=== PATIENT | male | born 1965 | race Hispanic/Latino ===

== ENCOUNTER 2022-10-09 04:45 | Observation (INO) | payer SELFPAY ==
[~2022-10-09] VITALS: Ht 182.9 cm; Wt 147.4 kg
[~2022-10-09 04:45] MED LIST: DOXYCYCLINE HY100 M2 IV; ULTRAM50 MG PO
[2022-10-09 05:20] LABS: BASOPHILS # (AUTO) 0.1 (0.0-0.1); BASOPHILS % 0.7 % (0.0-1.0); EOSINOPHILS # (AUTO) 0.4 (0.0-0.4); EOSINOPHILS % 5.9 % (0.0-6.0); HEMATOCRIT 42.4 % (38.2-49.6); HEMOGLOBIN 13.9 g/dL (14.0-18.0); LYMPHOCYTES # (AUTO) 1.3 (1.0-3.2); LYMPHOCYTES % 17.5 % (18.0-39.1); MEAN CORPUSCULAR HEMOGLOBIN 27.1 pg (28-32); MEAN CORPUSCULAR HGB CONC 32.8 g/dL (31-35); MEAN CORPUSCULAR VOLUME 82.7 fL (81-99); MONOCYTES # (AUTO) 0.5 (0.2-0.8); MONOCYTES % 7.1 % (4.4-11.3); NEUTROPHILS % 68.5 % (38.7-80.0); PLATELET COUNT 205 x10e3/uL (140-360); RED BLOOD COUNT 5.13 x10e6/uL (4.3-5.7); RED CELL DISTRIBUTION WIDTH 13.4 % (11.7-14.4)
[2022-10-09 05:44] LABS: ALBUMIN 3.6 g/dL (3.5-5.0); ALBUMIN/GLOBULIN RATIO 1.2 (0.8-2.0); CALCIUM 8.7 mg/dL (8.4-10.2); CREATININE, SERUM 0.96 mg/dL (0.72-1.25)
[2022-10-09 05:51] LABS: CREATINE KINASE MB 1.5 ng/mL (0-5.0)
[2022-10-09 06:03] LABS: AMPHETAMINES SCREEN,URINE NEGATIVE (NEGATIVE); BENZODIAZEPINES SCREEN,URINE NEGATIVE (NEGATIVE); PHENCYCLIDINE SCREEN,URINE NEGATIVE (NEGATIVE)
[2022-10-09] MEDS ORDERED: MELOXICAM7.5 MG PO (07:12)
[2022-10-09] MEDS ORDERED: ASPIRIN81 MG PO (07:12)
[2022-10-09] MEDS ORDERED: ATORVASTATIN CA20 MG PO (07:12)
[2022-10-09] MEDS ORDERED: AMLODIPINE BESY10 MG PO (07:12)
[2022-10-09] MEDS ORDERED: LISINOPRIL-HCT1 EAC1 PO (07:12)
[2022-10-09] MEDS ORDERED: CILOSTAZOL100 MG PO (07:12)
[2022-10-09] MEDS ORDERED: NEURONTIN300 MG PO (07:12)
[2022-10-09] MEDS ORDERED: ASPIRIN 325 MG TAB PO ONE (07:15)
[2022-10-09] MEDS ORDERED: NITROGLYCERIN 2% OINT 1 GM PKT TOP ONE (07:15)
[2022-10-09] MEDS ORDERED: NITROGLYCERIN 0.4 MG SUBL SL PRN (08:45)
[2022-10-09] MEDS ORDERED: ASPIRIN 81 MG CHEW TAB PO ONE (08:45)
[2022-10-09] MEDS ORDERED: SODIUM CHLORIDE FLUSH 10 ML SYR INJ PRN (08:45)
[2022-10-09] MEDS: ASPIRIN 81 MG ENTERIC COATED PO SCH (09:00)
[2022-10-09] MEDS: LISINOPRIL 10 MG TAB PO SCH (10:51)
[2022-10-09] MEDS: AMLODIPINE BESYLATE 5 MG TAB PO SCH (10:51)
[2022-10-09] MEDS: NITROGLYCERIN 2% OINT 1 GM PKT TOP SCH ×2 (12:00→18:00)
[2022-10-09 12:40] VITALS: BP 145/85
[2022-10-09 14:30] VITALS: BP 145/85
[2022-10-09] MEDS ORDERED: BENZONATATE 100 MG CAP PO PRN (14:30)
[2022-10-09] MEDS ORDERED: MELATONIN 5 MG TABLET PO PRN (14:30)
[2022-10-09] MEDS ORDERED: ACETAMINOPHEN 325 MG TAB PO PRN (14:30)
[2022-10-09] MEDS ORDERED: LIDOCAINE 4% PATCH TP PRN (14:30)
[2022-10-09] MEDS ORDERED: SIMETHICONE 80 MG CHEW PO PRN (14:30)
[2022-10-09] MEDS ORDERED: HYDRALAZINE HCL 20 MG/ML VIAL IV PRN (14:30)
[2022-10-09] MEDS ORDERED: POTASSIUM CHLORIDE 20 MEQ TAB CR PO PRN (14:30)
[2022-10-09] MEDS ORDERED: DIPHENHYDRAMINE HCL 25 MG CAP PO PRN (14:30)
[2022-10-09] MEDS ORDERED: ONDANSETRON HCL INJ 2MG/ML 2ML 2 MG/ML VIAL IV PRN (14:30)
[2022-10-09] MEDS ORDERED: DOCUSATE SODIUM 100 MG CAP PO PRN (14:30)
[2022-10-09] MEDS ORDERED: ALBUTEROL/IPRATROPIUM 3 ML NEB NEB PRN (14:30)
[2022-10-09] MEDS ORDERED: DEXTROSE 50% SYRINGE 50 ML IV PRN (14:30)
[2022-10-09] MEDS: LORATADINE 10 MG TAB PO SCH (15:24)
[2022-10-09] MEDS ORDERED: IOPAMIDOL 370 MG/ML 100 ML INFUS..BTL INJ ONE (15:29)
[2022-10-09 15:52] VITALS: BP 138/84
[2022-10-09 16:35] LABS: CREATINE KINASE MB 1.5 ng/mL (0-5.0)
[2022-10-09] MEDS ORDERED: ENOXAPARIN SOD INJ 40 MG/0.4 ML SYR SC SCH (17:00)
[2022-10-09] MEDS: FLUTICASONE PROPIONATE NASAL SPRAY NS SCH (17:21)
[2022-10-09 20:00] VITALS: BP 140/80
[2022-10-09 21:00] VITALS: BP 140/80
[2022-10-09] MEDS ORDERED: ATORVASTATIN 40 MG TAB PO SCH (21:00)
[2022-10-10] VITALS: BP 143/83
[2022-10-10] MEDS: NITROGLYCERIN 2% OINT 1 GM PKT TOP SCH ×2 (00:30→05:57)
[2022-10-10 01:09] LABS: CREATINE KINASE MB 1.4 ng/mL (0-5.0)
[2022-10-10 05:44] LABS: BASOPHILS % 0.5 % (0.0-1.0); EOSINOPHILS # (AUTO) 0.4 (0.0-0.4); EOSINOPHILS % 4.8 % (0.0-6.0); HEMATOCRIT 41.4 % (38.2-49.6); HEMOGLOBIN 13.7 g/dL (14.0-18.0); LYMPHOCYTES # (AUTO) 1.4 (1.0-3.2); LYMPHOCYTES % 16.2 % (18.0-39.1); MEAN CORPUSCULAR HEMOGLOBIN 27.6 pg (28-32); MEAN CORPUSCULAR HGB CONC 33.1 g/dL (31-35); MEAN CORPUSCULAR VOLUME 83.3 fL (81-99); MONOCYTES # (AUTO) 0.5 (0.2-0.8); MONOCYTES % 5.9 % (4.4-11.3); NEUTROPHILS # (AUTO) 6.4 (2.1-6.9); NEUTROPHILS % 72.4 % (38.7-80.0); PLATELET COUNT 220 x10e3/uL (140-360); RED BLOOD COUNT 4.97 x10e6/uL (4.3-5.7); RED CELL DISTRIBUTION WIDTH 13.6 % (11.7-14.4)
[2022-10-10 06:07] LABS: ANION GAP 12.9 mmol/L (8-16); CALCIUM 8.8 mg/dL (8.4-10.2); CREATININE, SERUM 0.74 mg/dL (0.72-1.25); POTASSIUM 3.9 mmol/L (3.5-5.1)
[2022-10-10 06:32] LABS: THYROID STIMULATING HORMONE 1.434 uIU/mL (0.350-4.940)
[2022-10-10 06:38] LABS: CHOL/HDL RATIO 4.1 (3.9-4.7)
[2022-10-10 07:14] LABS: CREATINE KINASE MB 1.2 ng/mL (0-5.0)
[2022-10-10] MEDS ORDERED: PANTOPRAZOLE SOD 40 MG TABEC PO SCH (07:30)
[2022-10-10 08:37] VITALS: BP 137/81
[2022-10-10] MEDS: LORATADINE 10 MG TAB PO SCH (09:23)
[2022-10-10] MEDS: AMLODIPINE BESYLATE 5 MG TAB PO SCH (09:23)
[2022-10-10] MEDS: ASPIRIN 81 MG ENTERIC COATED PO SCH (09:24)
[2022-10-10] MEDS: LISINOPRIL 10 MG TAB PO SCH (09:25)
[2022-10-10] MEDS: FLUTICASONE PROPIONATE NASAL SPRAY NS SCH (09:26)
== END 2022-10-10 11:05 | disposition home or self-care (01) ==
LOC: ER 04:48 → ERHOLD 08:31 → MED/SURG3 12:20
PROVIDERS: ADMIT Internal Medicine; ATTEND Internal Medicine
DX: R07.89 Other chest pain (principal); J30.89 Other allergic rhinitis; I10 Essential (primary) hypertension; E66.01 Morbid (severe) obesity due to excess calories; Z68.41 Body mass index [BMI] 40.0-44.9, adult; Z20.822 Contact with and (suspected) exposure to COVID-19; E78.5 Hyperlipidemia, unspecified; G47.33 Obstructive sleep apnea (adult) (pediatric); G62.9 Polyneuropathy, unspecified
CPT/HCPCS: 36415 ×2; 71045; 71260; 80048; 80053; 80061; 80307; 82550 ×2; 82553 ×2; 82948; 83036; 83690; 83735; 83880; 84443; 84484 ×2; 85025 ×2; 93005; 94799 ×2; 99284; G0378 ×2; Q9967; S0164; U0002

== ENCOUNTER 2024-08-25 19:30 | Inpatient (IN) | payer SELFPAY ==
[~2024-08-25] VITALS: Ht 182.9 cm; Wt 147.4 kg
[~2024-08-25 19:30] MED LIST changes: +AMLODIPINE BESY10 MG PO; +ASPIRIN81 MG PO; +ATORVASTATIN CA20 MG PO; +CILOSTAZOL100 MG PO; +LISINOPRIL-HCT1 EAC1 PO; +MELOXICAM7.5 MG PO; +NEURONTIN300 MG PO
[2024-08-25 20:22] VITALS: TEMP 98.6
[2024-08-25 20:48] LABS: BASOPHILS # (AUTO) 0.1 (0.0-0.1); BASOPHILS % 0.6 % (0.0-1.0); EOSINOPHILS # (AUTO) 0.1 (0.0-0.4); EOSINOPHILS % 1.5 % (0.0-6.0); HEMATOCRIT 41.5 % (38.2-49.6); HEMOGLOBIN 14.1 g/dL (14.0-18.0); LYMPHOCYTES # (AUTO) 1.1 (1.0-3.2); LYMPHOCYTES % 12.7 % (18.0-39.1); MEAN CORPUSCULAR HEMOGLOBIN 26.9 pg (28-32); MEAN CORPUSCULAR VOLUME 79.2 fL (81-99); MONOCYTES # (AUTO) 0.6 (0.2-0.8); MONOCYTES % 6.3 % (4.4-11.3); NEUTROPHILS # (AUTO) 6.9 (2.1-6.9); NEUTROPHILS % 78.6 % (38.7-80.0); PLATELET COUNT 289 x10e3/uL (140-360); RED BLOOD COUNT 5.24 x10e6/uL (4.3-5.7); RED CELL DISTRIBUTION WIDTH 13.2 % (11.7-14.4); WHITE BLOOD COUNT 8.82 x10e3/uL (4.8-10.8)
[2024-08-25 21:10] LABS: ALBUMIN 3.7 g/dL (3.5-5.0); ANION GAP 19.7 mmol/L (8-16); BILIRUBIN,TOTAL 0.4 mg/dL (0.2-1.2); CALCIUM 9.7 mg/dL (8.4-10.2); CREATININE, SERUM 0.99 mg/dL (0.72-1.25); POTASSIUM 3.7 mmol/L (3.5-5.1); TOTAL PROTEIN 7.3 g/dL (6.5-8.1)
[2024-08-25] MEDS: SODIUM CHLORIDE 0.9% 1000ML 1,000 ML IV ONE (21:18)
[2024-08-25] MEDS: Vancomycin IV 2 GM in SODIUM CHLORIDE 0.9% 500ML 500 ML IV ONE (21:19)
[2024-08-25] MEDS ORDERED: IOPAMIDOL 370 MG/ML 100 ML INFUS..BTL INJ ONE (21:24)
[2024-08-25 23:15] VITALS: PULSE 80; RESP 20
[2024-08-25] MEDS ORDERED: SODIUM CHLORIDE FLUSH 10 ML SYR INJ PRN (23:30)
[2024-08-25] MEDS ORDERED: ONDANSETRON HCL INJ 2MG/ML 2ML 2 MG/ML VIAL IV PRN (23:30)
[2024-08-25] MEDS: INSULIN REGULAR, HUMAN 100 UNIT/1 ML SQ ONE (23:37)
[2024-08-26 00:43] VITALS: BP 145/80; PULSE 80; RESP 18; TEMP 97.8; O2SAT 96
[2024-08-26] MEDS ORDERED: HYZAAR 100-251 EACH (01:06)
[2024-08-26] MEDS ORDERED: METFORMIN HCL500 MG PO (01:06)
[2024-08-26] MEDS ORDERED: ZYRTEC10 M3 (01:06)
[2024-08-26 04:41] VITALS: BP 129/84; PULSE 70; PULSE 80; RESP 17; TEMP 97.6; O2SAT 94
[2024-08-26 07:54] LABS: BASOPHILS % 0.5 % (0.0-1.0); EOSINOPHILS # (AUTO) 0.2 (0.0-0.4); EOSINOPHILS % 2.4 % (0.0-6.0); HEMATOCRIT 39.5 % (38.2-49.6); HEMOGLOBIN 13.3 g/dL (14.0-18.0); LYMPHOCYTES # (AUTO) 1.2 (1.0-3.2); LYMPHOCYTES % 15.5 % (18.0-39.1); MEAN CORPUSCULAR HEMOGLOBIN 27.1 pg (28-32); MEAN CORPUSCULAR HGB CONC 33.7 g/dL (31-35); MEAN CORPUSCULAR VOLUME 80.6 fL (81-99); MONOCYTES # (AUTO) 0.5 (0.2-0.8); MONOCYTES % 6.7 % (4.4-11.3); NEUTROPHILS # (AUTO) 5.7 (2.1-6.9); NEUTROPHILS % 74.6 % (38.7-80.0); PLATELET COUNT 260 x10e3/uL (140-360); RED CELL DISTRIBUTION WIDTH 13.2 % (11.7-14.4); WHITE BLOOD COUNT 7.57 x10e3/uL (4.8-10.8)
[2024-08-26 08:24] VITALS: BP 141/94; PULSE 82; RESP 18; TEMP 98.3; O2SAT 98
[2024-08-26 08:26] LABS: ALBUMIN 3.1 g/dL (3.5-5.0); ANION GAP 16.2 mmol/L (8-16); BILIRUBIN,TOTAL 0.3 mg/dL (0.2-1.2); CALCIUM 8.5 mg/dL (8.4-10.2); CREATININE, SERUM 0.76 mg/dL (0.72-1.25); TOTAL PROTEIN 6.2 g/dL (6.5-8.1)
[2024-08-26 08:27] LABS: POTASSIUM 3.2 mmol/L (3.5-5.1)
[2024-08-26] MEDS ORDERED: DEXTROSE 50% SYRINGE 50 ML IV PRN (10:00)
[2024-08-26] MEDS: GLIPIZIDE 5 MG TAB ER PO SCH (11:11)
[2024-08-26] MEDS: LISINOPRIL 20 MG TAB PO ONE (11:12)
[2024-08-26 11:30] VITALS: BP 154/94; PULSE 80; RESP 18; TEMP 98.9; O2SAT 98
[2024-08-26] MEDS: INSULIN LISPRO 100 UNIT/1 ML 3ML VIAL SQ SCH ×2 (11:36→11:38)
[2024-08-26 16:23] VITALS: BP 153/96; PULSE 76; RESP 18; TEMP 98.7; O2SAT 98
[2024-08-26] MEDS: DOXYCYCLINE HYCLATE TABLET 100 MG TAB PO SCH (16:53)
[2024-08-26 20:00] VITALS: BP 132/77; PULSE 78; RESP 18; TEMP 98.1; O2SAT 100
[2024-08-26] MEDS: INSULIN GLARGINE 100 UNITS/ML VIAL SQ SCH (22:10)
[2024-08-27] VITALS (7 sets, daily range): BP systolic 121–150; BP diastolic 72–96; PULSE 69–96; RESP 18–20; TEMP 97.3–98.7; O2SAT 96–100
[2024-08-27 06:21] LABS: ANION GAP 14.2 mmol/L (8-16); CALCIUM 8.4 mg/dL (8.4-10.2); CREATININE, SERUM 0.75 mg/dL (0.72-1.25); POTASSIUM 3.2 mmol/L (3.5-5.1)
[2024-08-27] MEDS: LISINOPRIL 20 MG TAB PO SCH (08:19)
[2024-08-27] MEDS: INSULIN GLARGINE 100 UNITS/ML VIAL SQ ONE (09:10)
[2024-08-27] MEDS: INSULIN LISPRO 100 UNIT/1 ML 3ML VIAL SQ SCH (11:54)
[2024-08-27] MEDS: ACETAMINOPHEN/CODEINE 300MG - 30MG TAB PO PRN (18:29)
[2024-08-28] VITALS: BP 148/97; PULSE 71; RESP 17; TEMP 98.5; O2SAT 97
[2024-08-28 04:00] VITALS: BP 143/89; PULSE 65; RESP 18; TEMP 97.7; O2SAT 95
[2024-08-28 08:15] VITALS: BP 137/87; PULSE 60; RESP 18; TEMP 97.6; O2SAT 96
[2024-08-28 11:15] VITALS: BP 126/75; PULSE 67; RESP 18; TEMP 98.1; O2SAT 96
[2024-08-28] MEDS ORDERED: ONDANSETRON HCL 4 MG ORAL DISINTEGRATING TAB PO PRN (11:15)
== END 2024-08-28 14:26 | disposition home or self-care (01) | DRG 638 ==
LOC: ER 20:28 → ERHOLD 23:21 → MED/SURG2 23:54
PROVIDERS: ADMIT Internal Medicine; ATTEND Internal Medicine
DX: E11.622 Type 2 diabetes mellitus with other skin ulcer (principal); L98.418 Non-pressure chronic ulcer of buttock with other specified severity; L98.498 Non-pressure chronic ulcer of skin of other sites with other specified severity; E66.01 Morbid (severe) obesity due to excess calories; Z68.41 Body mass index [BMI] 40.0-44.9, adult; E11.51 Type 2 diabetes mellitus with diabetic peripheral angiopathy without gangrene; E11.65 Type 2 diabetes mellitus with hyperglycemia; I10 Essential (primary) hypertension; E78.5 Hyperlipidemia, unspecified; Z91.198 Patient's noncompliance with other medical treatment and regimen for other reason; Z79.82 Long term (current) use of aspirin; Z79.4 Long term (current) use of insulin; Z79.84 Long term (current) use of oral hypoglycemic drugs
CPT/HCPCS: 36415; 74177; 80048; 80053; 82948; 83036; 85025; 96372; 99252; 99284; J1815; J2543; J7030; J7040; Q9967